=== PATIENT | female | born 1945 | race American Indian/Alaskan Native ===

== ENCOUNTER 2016-07-17 16:24 | Emergency (ER) | payer OTHER ==
[2016-07-17 16:50] VITALS: TEMP 97.9
--- NOTE | 2016-07-17 17:11 | C.PDOC ---
History Of Present Illness 71 year old patient presents to the ED complaining of a right periorbital facial injury after tripping and falling yesterday. Patient notes increased swelling and bruising today. Patient denies double vision, nausea, vomiting, or loss of consciousness. Patient states she is feeling well otherwise. SP TRIP AND FALL YEST CO R PERIORB FACIAL INJURY. INCR SWELLING, BRUISING TODAY. DENIES DOUBLE VISION, NV, LOC. OTHERWISE FEELING WELL. EXAM NAD HEENT +R PERIORB HEMATOMA W MILD R LAT EYELID SWELL. EOMI, VISION INTACT; NO CONJ HEMORRHAGE; MANDIBLE AROM. SKIN ABRASIONS R FOREHEAD, CHEEK. CLEAN, NO ACTIVE BLEEDING REMAINDER NEG Time Seen by Provider: 07/17/16 17:04 Chief Complaint (Nursing): Trauma History Per: Patient History/Exam Limitations: no limitations Onset/Duration Of Symptoms: Days (yesterday) Patient States: Fell Striking Head Severity: Mild Pain Scale Rating Of: 3 Loss Of Consciousness: No Recent travel outside of the [place]: No Past Medical History Reviewed: Historical Data, Nursing Documentation, Vital Signs Vital Signs: Last Vital Signs Temp 97.9 F 07/17/16 16:46 Pulse 82 07/17/16 19:04 Resp 18 07/17/16 19:04 BP 110/71 07/17/16 19:04 Pulse Ox 98 07/17/16 20:06 - Medical History PMH: Hypercholesterolemia Family History: States: Unknown Family Hx - Social History Hx Alcohol Use: Yes Hx Substance Use: No - Immunization History Hx Tetanus Toxoid Vaccination: Yes Hx Influenza Vaccination: No Hx Pneumococcal Vaccination: No Review Of Systems Except As Marked, All Systems Reviewed And Found Negative. Constitutional: Negative for: Other Eyes: Positive for: Other (right periorbital facial injury; increased swelling, (-)double vision) Gastrointestinal: Negative for: Nausea, Vomiting Skin: Positive for: Bruising (right facial area) Neurological: Negative for: Other (loss of consciousness) Physical Exam - Physical Exam Appears: Non-toxic, No Acute Distress Skin: Warm, Dry, Other (abrasions to the right forehead and cheek; clean; no active bleeding) Head: Atraumatic, Normacephalic, Other (mandible: Active range of motion) Eye(s): bilateral: EOMI, right: Other (periorbital hematoma with mild right lateral eyelid swelling, vision intact, no conjunctival hemorrhage), left: Normal Inspection Ear(s): Bilateral: Normal Nose: Normal Oral Mucosa: Moist Throat: Normal Neck: Normal ROM, Supple Chest: Symmetrical Cardiovascular: Rhythm Regular Respiratory: Normal Breath Sounds, No Rales, No Rhonchi, No Wheezing Gastrointestinal/Abdominal: Soft, No Tenderness Back: Normal Inspection, No CVA Tenderness Extremity: Normal ROM Neurological/Psych: Oriented x3, Normal Speech, Normal Cognition, Normal Motor, Normal Sensation Gait: Steady ED Course And Treatment O2 Sat by Pulse Oximetry: 98 (room air) Pulse Ox Interpretation: Normal Disposition Counseled Patient/Family Regarding: Studies Performed, Diagnosis, Need For Followup - Disposition Referrals: YOUR,PMD [Other] Disposition: HOME/ ROUTINE Disposition Time: 18:17 Condition: GOOD Instructions: Black Eye (ED) - Clinical Impression Clinical Impression: Periorbital contusion, Abrasion - Scribe Statement The provider has reviewed the documentation as recorded by the Scribe Blanca Lobo Provider Attestation: All medical record entries made by the Scribe were at my direction and personally dictated by me. I have reviewed the chart and agree that the record accurately reflects my personal performance of the history, physical exam, medical decision making, and the department course for this patient. I have also personally directed, reviewed, and agree with the discharge instructions and disposition.
--- NOTE | 2016-07-17 18:12 | CT ---
PROCEDURE: CT ORBITS WITHOUT CONTRAST. HISTORY: R FACIAL TRAUMA COMPARISON: None available. TECHNIQUE: Axial CT images of the orbits were obtained. Coronal and sagittal reformats were generated. Radiation dose: Total exam DLP = 682 mGy-cm. This CT exam was performed using one or more of the following dose reduction techniques: Automated exposure control, adjustment of the mA and/or kV according to patient size, and/or use of iterative reconstruction technique. FINDINGS: RIGHT ORBIT: RIGHT BONY ORBIT: Normal. RIGHT INTRAORBITAL STRUCTURES: Globe: Normal. Extraocular muscles: Normal. Post septal space: Normal. Optic Nerve: Normal. Lacrimal Apparatus: Normal. RIGHT PRESEPTAL SOFT TISSUES: Normal. LEFT ORBIT: LEFT BONY ORBIT: Normal. LEFT INTRAORBITAL STRUCTURES: Globe: Normal. Extraocular muscles: Normal. Post septal space: Normal Optic Nerve: Normal. . Lacrimal Apparatus: Normal. LEFT PRESEPTAL SOFT TISSUES: Normal. OTHER: None. IMPRESSION: No fracture.
[2016-07-17 19:05] VITALS: BP 110/71; PULSE 82; RESP 18
[2016-07-17 19:59] VITALS: O2SAT 98
== END 2016-07-17 19:05 | disposition home or self-care (01) ==
LOC: C.ER 16:24
DX: S00.11XA Contusion of right eyelid and periocular area, initial encounter (principal); W01.0XXA Fall on same level from slipping, tripping and stumbling without subsequent striking against object, initial encounter; Y93.9 Activity, unspecified; Y92.9 Unspecified place or not applicable